=== PATIENT | female | born 1990 | race Hispanic/Latino ===

== ENCOUNTER 2020-05-28 14:04 | Emergency (ER) | payer OTHER ==
[~2020-05-28] VITALS: Ht 167.6 cm; Wt 131.2 kg
[2020-05-28 15:09] LABS: BASO # 0.1 10^3/uL (0.0-0.2); BASO % 0.5 % (0.0-1.0); EOS # 0.2 10^3/uL (0.0-0.5); EOS % 1.8 % (0.0-3.0); HEMATOCRIT 35.9 % (36.0-47.0); HEMOGLOBIN 10.9 g/dl (12.0-15.5); LYMPH # 2.8 10^3/uL (1.5-5.0); LYMPH % 28.9 % (24.0-44.0); MEAN CORPUSCULAR HEMOGLOBIN 23.7 pg (27.0-33.0); MEAN CORPUSCULAR HGB CONC 30.4 g/dl (32.0-36.5); MEAN CORPUSCULAR VOLUME 78.2 fl (80.0-96.0); MONO # 0.6 10^3/uL (0.0-0.8); MONO % 6.5 % (0.0-5.0); NEUTROPHILS # 5.9 10^3/uL (1.5-8.5); NEUTROPHILS % 61.8 % (36.0-66.0); PLATELET COUNT, AUTOMATED 317 10^3/uL (150-450); RED BLOOD COUNT 4.59 10^6/uL (4.00-5.40); WHITE BLOOD COUNT 9.5 10^3/uL (4.0-10.0)
[2020-05-28 15:51] LABS: RSV AMPLIFICATION NEGATIVE (NEGATIVE)
[2020-05-28 15:54] LABS: ALBUMIN 3.3 GM/DL (3.2-5.2); ALT/SGPT 59 U/L (12-78); BILIRUBIN,DIRECT 0.2 MG/DL (0.0-0.2); BILIRUBIN,TOTAL 0.4 MG/DL (0.2-1.0); BLOOD UREA NITROGEN 8 MG/DL (7-18); CARBON DIOXIDE LEVEL 27 MEQ/L (21-32); CHLORIDE LEVEL 104 MEQ/L (98-107); CREATININE FOR GFR 0.55 MG/DL (0.55-1.30); GLOMERULAR FILTRATION RATE > 60.0 (>60); GLUCOSE, FASTING 91 MG/DL (70-100); HCG, SERUM QUANTITATIVE 1821 MIU/ML; LIPASE 84 U/L (73-393); POTASSIUM SERUM 3.9 MEQ/L (3.5-5.1); SODIUM LEVEL 138 MEQ/L (136-145); TOTAL PROTEIN 7.8 GM/DL (6.4-8.2)
--- NOTE | 2020-05-28 18:06 | REPVR ---
PROCEDURE INFORMATION: Exam: US First Trimester, Transabdominal and US , Transvaginal Exam date and time: 05/28/2020 5:25 PM Age: 30 years old Clinical indication: Lmp or gestational age (in weeks): 6wks; Other: Vag bleeding; ; Additional info: Vaginal bleeding TECHNIQUE: Imaging protocol: Real-time transabdominal obstetrical ultrasound of the maternal pelvis and a first trimester , less than 14 weeks 0 days, with image documentation. Transvaginal imaging was used for better evaluation of the fetus, adnexa, and/or cervix. COMPARISON: No relevant prior studies available. FINDINGS: Mean sac diameter: Transabdominally, there appears to be an intrauterine gestational sac measuring 0.7 x 0.4 x 0.5 cm for a mean sac diameter 0.54 cm for a menstrual age of 5 weeks and 1 day. Endovaginally, there is an intrauterine gestational sac measuring 0.86 x 0.36 x 0.76 for a mean sac diameter 0.66 cm for menstrual age of 5 weeks and 2 days. No yolk sac. No pole. MATERNAL: Uterus: Transabdominally, the uterus measures 9.5 x 5.4 by 6.5 cm. Endovaginally, the uterus measures 9.3 x 4.7 by 7.3 cm. Cervix: Unremarkable. Right adnexa: Transabdominally, the right ovary is not seen as a separate structure. Endovaginally, the right ovary measures 2.7 x 3.2 x 1.9 cm. Arterial blood flow demonstrated in the right ovary on pulse Doppler examination. Left adnexa: Transabdominally, the left ovary measures 2.5 x 2.1 x 1.4 cm. Endovaginally, the left ovary measures 1.9 x 2.6 by 2.3 cm. Arterial blood flow demonstrated in the left ovary on pulse Doppler examination. Intraperitoneal space: No intraperitoneal free fluid. Other findings: There is suboptimal distention of the bladder which limits visualization of the uterus and the adnexa on the transabdominal portion of the examination.. IMPRESSION: Single intrauterine gestational sac with an estimated menstrual age of 5 weeks and 2 days. No pole. No yolk sac. Serial beta hCG measurement and follow-up ultrasound might be considered to confirm the presence of a live . Electronically signed by: Heaven Yan On 05/28/2020 18:05:45 PM
[2020-05-28 18:46] VITALS: BP 140/83
== END 2020-05-28 18:47 | disposition home or self-care (01) ==
LOC: M ED 14:04
DX: O20.9 Hemorrhage in early pregnancy, unspecified (principal); Z20.822 Contact with and (suspected) exposure to COVID-19; O99.511 Diseases of the respiratory system complicating pregnancy, first trimester; J45.909 Unspecified asthma, uncomplicated; Z3A.01 Less than 8 weeks gestation of pregnancy